=== PATIENT | female | born 1970 | race Caucasian/White ===

== ENCOUNTER 2017-09-20 13:58 | Outpatient (CLI) | payer OTHER | END 2017-09-20 13:59 | disposition home or self-care (01) | LOC: BICMAMMO 13:58 | PROVIDERS: ATTEND Obstetrics & Gynecology | DX: Z12.31 Encounter for screening mammogram for malignant neoplasm of breast (principal); Z80.3 Family history of malignant neoplasm of breast | CPT/HCPCS: 77063; 77067 ==

== ENCOUNTER 2020-10-15 16:02 | Outpatient (CLI) | payer BC | END 2020-10-15 16:03 | disposition home or self-care (01) | LOC: BICMAMMO 16:02 | PROVIDERS: ATTEND Family Medicine | DX: Z12.31 Encounter for screening mammogram for malignant neoplasm of breast (principal); Z80.3 Family history of malignant neoplasm of breast | CPT/HCPCS: 77063; 77067 ==